=== PATIENT | male | born 1990 | race Caucasian/White ===

== ENCOUNTER 2021-11-13 17:23 | Emergency (ER) | payer MEDICAID ==
[~2021-11-13 17:23] MED LIST: CLIN-97 PO; DAYQUIL; NO HOME MEDS
== END 2021-11-13 20:42 | disposition left against medical advice (07) ==
LOC: ER 17:23
DX: G50.1 Atypical facial pain (principal); Z53.21 Procedure and treatment not carried out due to patient leaving prior to being seen by health care provider